=== PATIENT | female | born 1970 | race Caucasian/White ===

== ENCOUNTER → 2020-03-05 14:20 | Outpatient (BNVA) | payer OTHER, SELFPAY | PROVIDERS: Family Provider Registered Nurse; Visit Provider Nurse Practitioner Family | DX: Z11.59 Encounter for screening for other viral diseases (principal); R50.9 Fever, unspecified; R51 Headache; J02.9 Acute pharyngitis, unspecified | CPT/HCPCS: 87635 ==

== ENCOUNTER 2020-03-11 10:02 | Emergency (ER) | payer OTHER, SELFPAY ==
[2020-03-11 10:03] VITALS: BP 130/87; PULSE 95; RESP 15; TEMP 36.9; O2SAT 96; BMI 31.8
--- NOTE | 2020-03-11 10:18 | XRR_ITS ---
PROCEDURE INFORMATION: Exam: XR Chest, 1 View Exam date and time: 03/11/2020 10:52 AM Age: 49 years old Clinical indication: Shortness of breath; Chest pain; Type not specified; Patient HX: Positive covid; Additional info: Chest pain/sob TECHNIQUE: Imaging protocol: XR of the chest Views: 1 view. COMPARISON: CR Chest 1 [place] [id number] 05/09/2018 12:46 PM FINDINGS: Lungs: Unremarkable. No consolidation. Pleural space: Unremarkable. No pleural effusion. No pneumothorax. Heart/Mediastinum: Unremarkable. No cardiomegaly. Bones/joints: No acute findings. XR/XR chest 1V portable [id number] IMPRESSION: No acute findings.
--- NOTE | 2020-03-11 10:18 | ECG_ITS ---
[facility] Test Date: 2020-03-11 Pat Name: Jeri Hutchinson Department: Room: Gender: Female Curriculum Writer: : 1970 Requested By: Onelia Hooper Order Number: [id number] Seema MD: Maris Becerra M.D. Measurements Intervals [place] Rate: 87 P: 15 DC: 135 QRS: 33 QRSD: 86 T: 52 QT: 345 QTc: 416 Interpretive Statements SINUS RHYTHM POSSIBLE RIGHT VENTRICULAR CONDUCTION DELAY [RSR (QR) IN V1/V2] Compared to ECG 05/09/2018 12:53:58 No significant changes Electronically Signed On 03-11-2020 17:27:42 CDT by Maris Becerra M.D. [id number]
[2020-03-11 11:00] LABS: Basophils % 0.1 %; Eosinophils % 0.4 %; Hematocrit 47.9 % (37.0-47.0); Hemoglobin 16.2 g/dL (11.5-15.3); Lymphocytes # 2.1 10^3/uL (0.8-4.8); Lymphocytes % 30.7 %; Mean Corpuscular HGB Conc 33.8 g/dL (30.0-36.0); Mean Corpuscular Hemoglobin 31.9 pg (28.0-34.0); Mean Corpuscular Volume 94.3 fL (81-99); Mean Platelet Volume 12.4 fL (7.4-10.4); Monocytes # 0.6 10^3/uL (0.2-0.9); Monocytes % 8.5 %; Neutrophils # 4.17 10^3/uL (1.8-7.7); Neutrophils % 60.2 %; Nucleated Red Blood Cells % 0 %; Platelet Count 201 10^3/cmm (130-400); Red Blood Count 5.08 10^6/uL (4.1-5.3); Red Cell Distribution Width 11.6 % (12.1-15.1); White Blood Count 6.9 10^3/uL (4.0-10.0)
--- NOTE | 2020-03-11 11:00 | W.ED.GENADLT ---
HPI - General Adult General: Chief complaint: Shortness of Breath/Dyspnea Stated complaint: COV+ Time Seen by Provider: 03/11/20 10:18 Source: patient Mode of arrival: ambulatory Limitations: no limitations History of Present Illness: HPI narrative: Patient is a 49-year-old female who presents to ED today for evaluation for her COVID symptoms. Patient states she was swabbed on Tuesday and was called on Tuesday for her positive results. She tells me on Tuesday she began feeling a tickle in her throat and began having some nasal drainage. She initially thought these were related to allergies however the day following those symptoms she began developing a headache and body aches as well as coughing. She states since then symptoms have progressed into chest pains and dizziness. She states she gets extremely short of breath with walking short distances. She had one syncopal episode on Tuesday. She reports fevers of 99.9. Patient denies known sick contacts. PMH is significant for HTN and anxiety. Her current medications include lisinopril and lorazepam. Associated symptoms: Reports chest pain, dyspnea, headache(s) and malaise; Deny nausea, rash, palpitations, syncope or vomiting Review of Systems Const: Reports: fever(s) (low grade), chills, body aches, fatigue and malaise Eyes: Denies: change in vision, blurry vision, photophobia, floaters or seeing flashes ENMT: Reports: throat pain, odynophagia, nasal discharge and nasal congestion Card: Reports: chest pain, lightheadedness and dyspnea on exertion; Denies: palpitations, irregular heart rhythm, edema, swelling of feet/ankles, syncope, pre-syncope, orthopnea or leg pain with exertion Resp: Reports: dyspnea, non-productive cough and chest congestion; Denies: pain on inspiration or hemoptysis GI: Reports: diarrhea; Denies: abdominal pain, nausea or vomiting : Denies: flank pain, difficulty voiding, dysuria, urinary frequency, urinary urgency or urinary hesitancy Musc: Denies: neck pain or back pain Skin/Breast: Denies: rash Neuro: Reports: headache(s) and dizziness; Denies: numbness in extremities, weakness in extremities or sensory changes Physical Exam Const: COMMON NORMALS: average body habitus, patient oriented x3, no limitations, healthy appearing, alert and well nourished GENERAL APPEARANCE: cooperative ORIENTATION/CONSCIOUSNESS: Yes awake, Yes oriented to person, Yes oriented to place and Yes oriented to time OTHER: looks like she doesn't feel well HENMT: COMMON NORMALS: normocephalic and atraumatic HEAD & SCALP: normocephalic and atraumatic Neck/C-Spine: COMMON NORMALS: no lymphadenopathy Resp: COMMON NORMALS: normal respiratory effort and clear to auscultation bilaterally AUSCULTATION: clear to auscultation bilaterally Cardio: COMMON NORMALS: regular rate and regular rhythm RATE: regular rate RHYTHM: regular rhythm Extremity: COMMON NORMALS: normal to inspection GENERAL: Yes normal exam except as noted Neuro: COMMON NORMALS: patient oriented x3 SENSORIUM/ORIENTATION: Yes alert, Yes oriented to person, Yes oriented to place and Yes oriented to time Skin: COMMON NORMALS: no rashes or lesions noted GENERAL SKIN EXAM: no rashes or lesions noted Course Vital Signs: Vital signs: Vital Signs Temperature 98.5 F 03/11/20 10:03 Pulse Rate 103 H 03/11/20 12:02 Respiratory Rate 20 H 03/11/20 12:02 Blood Pressure 130/87 03/11/20 10:03 Pulse Oximetry 98 03/11/20 12:02 MDM - General Adult MDM Narrative: Medical decision making narrative: pts labs overall look okay-she has a normal white count, d-dimer is barely elevated, very mild elevations to LFTs, troponin and CRP are normal; CXR normal; pts vitals are stable; she is satting normal and has not required oxygen; we got patient up and exerted her to see if she de-satted and she stayed at 100%; I spoke to Dr. Munoz who felt there would be no indication for hospital admission at this time; I did speak to patient extensively about returning to ED if she felt symptoms were worsening; she verbalized understanding Lab Data: Labs: Lab Results 03/11/20 03/11/20 03/11/20 Range/Units 10:47 10:49 10:49 WBC 6.9 (4.0-10.0) 10^3/ uL RBC 5.08 (4.1-5.3) 10^6/u L Hgb 16.2 H (11.5-15.3) g/dL Hct 47.9 H (37.0-47.0) % MCV 94.3 (81-99) fL MCH 31.9 (28.0-34.0) pg MCHC 33.8 (30.0-36.0) g/dL RDW 11.6 L (12.1-15.1) % Plt Count 201 (130-400) 10^3/c mm MPV 12.4 H (7.4-10.4) fL Neut % (Auto) 60.2 % Lymph % (Auto) 30.7 % [place] % (Auto) 8.5 % Eos % (Auto) 0.4 % Baso % (Auto) 0.1 % Neut # (Auto) 4.17 (1.8-7.7) 10^3/u L Lymph # (Auto) 2.1 (0.8-4.8) 10^3/u L [place] # (Auto) 0.6 (0.2-0.9) 10^3/u L Eos # (Auto) 0.0 (0.0-0.8) 10^3/u L Baso # (Auto) 0.0 (0.0-0.1) 10^3/u L Nucleated RBC % (a uto) 0 % Nucleated RBCs # 0.0 /100WBC D-Dimer (0-0.59) ug/mIFE U Sodium 137 (136-145) mmol/L Potassium 4.0 (3.5-5.1) mmol/L Chloride 99 (98-107) mmol/L Carbon Dioxide 25 (22-29) mmol/L Anion Gap 17.0 (5-19) BUN 15 (6-20) mg/dL Creatinine 0.6 (0.5-0.9) mg/dL GFR Calculation 107.2 (90-130) mL/min Glucose 98 (65-115) mg/dL Calculated Osmolal ity 280 L (285-295) mOsm/k g Lactic Acid (0.5-2.2) mmol/L Calcium 9.5 (8.5-10.5) mg/dL Magnesium 2.1 (1.7-2.3) mg/dL Total Bilirubin 0.5 (0.15-1.2) mg/dL AST 40 H (0-32) U/L ALT 54 H (0-33) U/L Alkaline Phosphata se 83 (35-105) IU/L Troponin T Gen 5 n g/L (0-10) ng/L C-Reactive Protein 3.9 (0.0-4.9) mg/L Total Protein 8.8 H (6.6-8.7) g/dL Albumin 4.6 (3.5-5.2) g/dL Globulin 4.2 (1.3-4.6) g/dL Influenza Type A A g Negative (Negative) Influenza Type B A g Negative (Negative) 03/11/20 03/11/20 03/11/20 Range/Units 10:49 10:49 10:49 WBC (4.0-10.0) 10^3/ uL RBC (4.1-5.3) 10^6/u L Hgb (11.5-15.3) g/dL Hct (37.0-47.0) % MCV (81-99) fL MCH (28.0-34.0) pg MCHC (30.0-36.0) g/dL RDW (12.1-15.1) % Plt Count (130-400) 10^3/c mm MPV (7.4-10.4) fL Neut % (Auto) % Lymph % (Auto) % [place] % (Auto) % Eos % (Auto) % Baso % (Auto) % Neut # (Auto) (1.8-7.7) 10^3/u L Lymph # (Auto) (0.8-4.8) 10^3/u L [place] # (Auto) (0.2-0.9) 10^3/u L Eos # (Auto) (0.0-0.8) 10^3/u L Baso # (Auto) (0.0-0.1) 10^3/u L Nucleated RBC % (a uto) % Nucleated RBCs # /100WBC D-Dimer 0.70 H (0-0.59) ug/mIFE U Sodium (136-145) mmol/L Potassium (3.5-5.1) mmol/L Chloride (98-107) mmol/L Carbon Dioxide (22-29) mmol/L Anion Gap (5-19) BUN (6-20) mg/dL Creatinine (0.5-0.9) mg/dL GFR Calculation (90-130) mL/min Glucose (65-115) mg/dL Calculated Osmolal ity (285-295) mOsm/k g Lactic Acid 0.9 (0.5-2.2) mmol/L Calcium (8.5-10.5) mg/dL Magnesium (1.7-2.3) mg/dL Total Bilirubin (0.15-1.2) mg/dL AST (0-32) U/L ALT (0-33) U/L Alkaline Phosphata se (35-105) IU/L Troponin T Gen 5 n g/L 6 (0-10) ng/L C-Reactive Protein (0.0-4.9) mg/L Total Protein (6.6-8.7) g/dL Albumin (3.5-5.2) g/dL Globulin (1.3-4.6) g/dL Influenza Type A A g (Negative) Influenza Type B A g (Negative) Imaging Data^: CXR: Radiologist's impression: [place] [address] XRay Report Signed Patient: Jeri Hutchinson Unit #: [id number] : 1970 Age/Sex: 49 / F ADM Date: 03/11/20 Loc: ER Room/Bed: Attending Dr: Ordering Provider/Ordering MD: Onelia Hooper Date of Service: 03/11/20 Procedure(s): XR chest 1V portable [id number] Accession Number(s): [id number] Report Number: [id number] PROCEDURE INFORMATION: Exam: XR Chest, 1 View Exam date and time: 03/11/2020 10:52 AM Age: 49 years old Clinical indication: Shortness of breath; Chest pain; Type not specified; Patient HX: Positive covid; Additional info: Chest pain/sob TECHNIQUE: Imaging protocol: XR of the chest Views: 1 view. COMPARISON: CR Chest 1 [place] [id number] 05/09/2018 12:46 PM FINDINGS: Lungs: Unremarkable. No consolidation. Pleural space: Unremarkable. No pleural effusion. No pneumothorax. Heart/Mediastinum: Unremarkable. No cardiomegaly. Bones/joints: No acute findings. XR/XR chest 1V portable [id number] IMPRESSION: No acute findings. Dictated By: Agusto Zambrano MD Signed By: Agusto Zambrano MD Signed Date/Time: 03/11/20 113 DD/ 31 EKG Data^: EKG 1: EKG interpretation date: 03/11/20 EKG interpretation time: 10:37 Interpretation: Sinus rhythm Rate [address] elevation or depression changes noted Computer generated interpretation: Chest X-Ray 03/11/20 10:18 IMPRESSION: No acute findings. Discharge Plan Discharge Patient Disposition: Home Clinical Impression: COVID-19 Condition: Stable Prescriptions: No Action Multiple Vitamins Tablet 1 tab PO BID RF: 0 lisinopril-hydrochlorothiazide 20-12.5 mg tablet 1 tab PO DAILY RF: 0 Tylenol Extra Strength 500 mg Tablet 1,500 mg PO PRN RF: 0 lorazepam 1 mg tablet 1 mg PO Q8H PRN (Reason: Anxiety) RF: 0 Discharge Orders: Discharge Order (Routine); Ordered 03/11/20 Ordered By: Onelia Hooper Activity Restrictions/Additional Instructions: As discussed make sure to get plenty of rest and push fluids. Avoid strenuous activity. You may purchase a portable pulse ox to place on your finger to monitor oxygen levels. Please return to the emergency department immediately for worsening symptoms including worsening shortness of breath or chest pains. I hope you begin to feel better soon. Coding Level of Care Code ED C D Still Operator for Praveeng Fwd Exam Detailed
[2020-03-11 11:17] LABS: Lactic Sepsis W/Reflex 0.9 mmol/L (0.5-2.2)
[2020-03-11 11:20] LABS: Alanine Aminotransferase 54 U/L (0-33); Albumin Level 4.6 g/dL (3.5-5.2); Alkaline Phosphatase 83 IU/L (35-105); Aspartate Amino Transferase 40 U/L (0-32); Blood Urea Nitrogen 15 mg/dL (6-20); C Reactive Protein 3.9 mg/L (0.0-4.9); Calcium 9.5 mg/dL (8.5-10.5); Carbon Dioxide 25 mmol/L (22-29); Chloride 99 mmol/L (98-107); Globulin 4.2 g/dL (1.3-4.6); Glomerular Filtration Rate 107.2 mL/min (90-130); Glucose 98 mg/dL (65-115); Magnesium 2.1 mg/dL (1.7-2.3); Osmolality Calculated 280 mOsm/kg (285-295); Sodium 137 mmol/L (136-145); Total Bilirubin 0.5 mg/dL (0.15-1.2); Total Protein 8.8 g/dL (6.6-8.7)
[2020-03-11 11:21] LABS: Troponin T (5th) Once 6 ng/L (0-10)
[2020-03-11 11:29] LABS: Influenza A by IFA Negative (Negative); Influenza B by IFA Negative (Negative)
[2020-03-11 12:02] VITALS: PULSE 103; RESP 20; O2SAT 98
[2020-03-11 13:43] VITALS: BP 130/87; PULSE 87; RESP 17; TEMP 36.9; O2SAT 96
--- NOTE | 2020-03-13 14:09 | PC.NURSE ---
2nd blood culture positive for gram positive cocci in clusters
== END 2020-03-11 13:35 | disposition home or self-care (01) ==
PROVIDERS: Emergency Provider Physician Assistant
DX: U07.1 COVID-19 (principal)
CPT/HCPCS: 12345; 36415; 71045; 80053; 83605; 83735; 84484; 85025; 85378; 86140; 87040; 87205; 87804; 93005; 99283; 99284

== ENCOUNTER 2021-02-04 20:26 | Emergency (ER) | payer OTHER, SELFPAY ==
[2021-02-04 20:39] VITALS: BP 147/87; PULSE 80; RESP 16; TEMP 36.2; O2SAT 95; BMI 28.6
[2021-02-04 21:44] LABS: HCG Qualitative Urine. Negative (Negative)
--- NOTE | 2021-02-04 21:55 | CTR_ITS ---
PROCEDURE INFORMATION: Exam: CT Abdomen And Pelvis Without Contrast Exam date and time: 02/04/2021 9:55 PM Age: 50 years old Clinical indication: Other: Hematuria; Abdominal pain; Flank; Right; Prior surgery; Surgery type: , hyst; Additional info: Right flank pain TECHNIQUE: Imaging protocol: Computed tomography of the abdomen and pelvis without contrast. Radiation optimization: All CT scans at this facility use at least one of these dose optimization techniques: automated exposure control; mA and/or kV adjustment per patient size (includes targeted exams where dose is matched to clinical indication); or iterative reconstruction. COMPARISON: CR XR chest 1V portable [id number] 03/11/2020 10:42 AM RADIATION DOSE METRICS: Total DLP (mGy-cm): 926.4 FINDINGS: Liver: Left hepatic lobe cyst. Gallbladder and bile ducts: Normal. No calcified stones. No ductal dilation. Pancreas: Normal. No ductal dilation. Spleen: Normal. No splenomegaly. Adrenal glands: Normal. No mass. Kidneys and ureters: Mild right hydronephrosis and hydroureter without obstructing lesion may reflect sequelae of a recently passed calculus. Small amount of edema is also seen about the right ureter which may also reflect an underlying infectious process depending on the clinical scenario. Stomach and bowel: Unremarkable. No obstruction. No mucosal thickening. Appendix: No evidence of appendicitis. Intraperitoneal space: Unremarkable. No free air. No significant fluid collection. Vasculature: Unremarkable. No abdominal aortic aneurysm. Lymph nodes: Unremarkable. No enlarged lymph nodes. Urinary bladder: Unremarkable as visualized. Reproductive: Right ovary 12 mm peripherally calcified cyst. Bones/joints: Unremarkable. No acute fracture. Soft tissues: Unremarkable. CT/CT kidney stone [id number] IMPRESSION: 1. Mild right hydronephrosis and hydroureter without obstructing lesion may reflect sequelae of a recently passed calculus. Small amount of edema is also seen about the right ureter which may also reflect an underlying infectious process depending on the clinical scenario. 2. Right ovary 12 mm peripherally calcified cyst. 3. Left hepatic lobe cyst. Radiation Dose CTDIVOL = (mGy): DLP = 926.4 (mGy-cm)
--- NOTE | 2021-02-04 21:56 | W.ED.FEMALGU ---
HPI - Female Genitourinary General: Chief complaint: Urogenital-Female Stated complaint: poss UTI/back pain Time Seen by Provider: 02/04/21 21:43 History of Present Illness: HPI Narrative: 50-year-old female comes in today with complaints of right flank pain and urinary tract infection. Patient was evaluated and treated for a UTI last Tuesday. Patient reports no improvement in symptoms and feels worse today than then. Patient now has some right flank pain. Patient appears in mild pain. Patient appears mildly unwell and not toxic. Patient has a history of headaches, hypertension, and anxiety. Review of Systems General: Reports: 10 or more systems reviewed and unremarkable except in HPI and below : Reports: flank pain and dysuria Physical Exam Const: COMMON NORMALS: no acute distress and patient oriented x3 GENERAL APPEARANCE: cooperative HENMT: COMMON NORMALS: normocephalic and Normal external nose present HEAD & SCALP: normal to inspection and normocephalic NOSE: Normal external nose present MOUTH: Normal oral and palatal mucosa present Eye: GENERAL EYE: appearance normal, both eyes and all related structures Neck/C-Spine: COMMON NORMALS: full ROM Chest: COMMONS NORMALS: normal inspection of the chest Resp: COMMON NORMALS: normal respiratory effort EFFORT & INSPECTION: Yes able to speak in complete sentences Cardio: COMMON NORMALS: regular rate and regular rhythm RATE: regular rate RHYTHM: regular rhythm GI: COMMON NORMALS: non-tender : BLADDER/KIDNEY EXAM: Yes CVA tenderness on the right Back/Pelvis: COMMON NORMALS: thoracic and lumbar spine normal to inspection GENERAL BACK: Yes CVA tenderness Extremity: COMMON NORMALS: normal to inspection Neuro: COMMON NORMALS: patient oriented x3 and moves all extremities Psych: COMMON NORMALS: mental status grossly normal and cooperative Skin: COMMON NORMALS: no rashes or lesions noted GENERAL SKIN EXAM: no rashes or lesions noted Course Vital Signs: Vital signs: Vital Signs Temperature 97.1 F L 02/04/21 20:39 Pulse Rate 80 02/04/21 20:39 Respiratory Rate 16 02/04/21 20:39 Blood Pressure 147/87 02/04/21 20:39 Pulse Oximetry 95 02/04/21 20:39 MDM - Female MDM Narrative: Medical decision making narrative: Patient comes in tonight with complaints of right flank pain. Patient also reports dysuria. On exam patient has right CVA tenderness. Respirations are even lungs are clear to auscultation. Vital signs are normal. Differential diagnosis includes pyelonephritis, urinary tract infection, renal calculi. CT of the abdomen pelvis noted no obstructing stone but did see some hydronephrosis in the right kidney. Urinalysis had a large amount of white blood cells. The hydronephrosis may be secondary to the recent passing of a kidney stone or may be a stricture within the ureter. We will go ahead and treat for infection with 1 g of Rocephin and then cefdinir to follow. Recommend that patient follow-up with urology for further evaluation of the hydronephrosis of the right kidney. Patient reported understanding and agreed to plan. Lab Data: Labs: Lab Results 02/04/21 02/04/21 Range/Units 21:36 21:45 HCG, Qual Negative (Negative) Urine Color Yellow (Yellow) Urine Appearance Sl hazy (CLEAR) Urine pH 7 (5-7) Ur Specific Gravit y 1.010 (1.005-1.030) Urine Protein Trace (Negative) Urine Glucose (UA) Norm (Normal) Urine Ketones Negative (Negative) Urine Blood 3+ H (Negative) Urine Nitrate Negative (Negative) Urine Bilirubin Neg (Negative) Urine Urobilinogen Norm (Negative) mg/dL Ur Leukocyte Raiza ase 2+ H (Negative) Urine RBC 0-4 H (0-2) /hpf Urine WBC >100 H (0-5) /hpf Ur Squamous Epith Cells 5-10 H (0-5) /hpf Amorphous Sediment Not Reportable Urine Bacteria 1+ H (NONE) /hpf Discharge Plan Discharge Patient Disposition: Home Clinical Impression: Hydronephrosis of right kidney Urinary tract infection Qualifiers: Urinary tract infection type: acute pyelonephritis Qualified Code(s): N10 - Acute pyelonephritis Condition: Stable Prescriptions: New cefdinir 300 mg capsule 300 mg PO BID 10 Days Qty: 20 RF: 0 hydrocodone-acetaminophen 5-325 mg tablet 1 tab PO Q6H PRN (Reason: pain (scale score 7-10)) Qty: 10 RF: 0 No Action Multiple Vitamins Tablet 1 tab PO BID RF: 0 lisinopril-hydrochlorothiazide 20-12.5 mg tablet 1 tab PO DAILY RF: 0 Tylenol Extra Strength 500 mg Tablet 1,500 mg PO PRN RF: 0 lorazepam 1 mg tablet 1 mg PO Q8H PRN (Reason: Anxiety) RF: 0 Discharge Orders: Discharge ED (Routine); Ordered 02/04/21 Ordered By: Shaggy Billings Discharge Diet: Usual diet Discharge Activity: Increase activity as tolerated Patient Instructions: Renal Colic (ED), Opioid Safety Activity Restrictions/Additional Instructions: Use acetaminophen and ibuprofen for pain. Use hydrocodone for breakthrough pain. Continue with cefdinir antibiotic 300 mg twice a day for the next 7 days. Follow-up with primary care in 1 week for recheck. Case management will contact you regarding a follow-up appointment for urologist to do the hydronephrosis of the right kidney. Return to the emergency room for worsening symptoms or new concerns. Coding Level of Care Code ED Vending Machine Refiller for Lisseth Chaudhari Exam Comprehensive
[2021-02-04 22:05] LABS: Add Urine Microscopic? YES; Bilirubin Urine Neg (Negative); Blood Urine 3+ (Negative); Glucose Urine UA Norm (Normal); Ketones Urine Negative (Negative); Leukocyte Esterase Urine 2+ (Negative); Nitrate Urine Negative (Negative); Protein Urine Trace (Negative); RBC Urine 0-4 /hpf (0-2); Urine Appearance SL Hazy (CLEAR); Urine Color Yellow (Yellow); Urobilinogen Urine Norm (Negative); WBC Urine >100 /hpf (0-5); pH Urine 7 (5-7)
[2021-02-04 22:06] LABS: Add Urine Culture? Yes; Bacteria Urine 1+ /hpf
[2021-02-04] MEDS: HYDROcodone-acetaminophen 7.5-325 mg Tablet 1 TAB PO (22:12)
[2021-02-04] MEDS: cefTRIAXone 1,000 MG in lidocaine 1% 2.1 ML 1 MG IM (23:07)
[2021-02-04] MEDS: ketorolac 30 mg/mL INJ IM (23:49)
--- NOTE | 2021-02-09 13:53 | DCPLANNER ---
export sales manager was asked to schedule a follow up appointment for patient with Dr. Park. export sales manager called the office of Dr. Park, spoke with Khushi, gave clinic patients information. export sales manager was told that patients information would be printed and reviewed. Clinic will call patient with appointment information.
--- NOTE | 2021-02-10 08:35 | DCPLANNER ---
Patient has a follow up appointment scheduled for Wednesday, February 17, [address] at 8:[address] Park. Clinic will call patient with appointment information.
--- NOTE | 2021-02-19 11:59 | DCPLANNER ---
Patient had a follow up appointment scheduled with Dr. Park - appointment was cancelled.
== END 2021-02-04 23:54 | disposition home or self-care (01) ==
PROVIDERS: Emergency Provider Nurse Practitioner Family
DX: N10 Acute pyelonephritis (principal); N13.30 Unspecified hydronephrosis; I10 Essential (primary) hypertension
CPT/HCPCS: 74176; 81001; 81025; 87077; 87086; 87186; 96372; 99283; J0696; J1885

== ENCOUNTER 2021-05-20 15:31 | Emergency (ER) | payer BC, SELFPAY ==
[2021-05-20 15:45] VITALS: BP 115/82; PULSE 95; RESP 18; TEMP 37; O2SAT 100; BMI 26.2
--- NOTE | 2021-05-20 16:37 | W.ED.GENADLT ---
HPI - General Adult General: Chief complaint: General Medical Stated complaint: HTN, WEAK Time Seen by Provider: 05/20/21 16:32 History of Present Illness: HPI narrative: CC: Chest Pain HPI: This is a [50]-year-old patient with a history of hypertension who recently started on hydrochlorothiazide 25 mg and lisinopril 20 mg presenting the emergency room for evaluation of uncontrolled blood pressure and left-sided facial numbness. Patient says that her symptom has been going on for 1 day. She recently restarted lisinopril yesterday and Ativan for anxiety. Patient denies any focal neurological weakness. Patient is concerned that her blood pressure is uncontrolled. Patient also reports intermittent chest pressure and a.m. this morning that has since resolved. Patient denies any chest pain shortness breath, exertional or pleuritic chest pain, nausea/vomiting, fever/chills, abdominal complaints or complaints at this time. Denies smoking or any hx of drug use. In addition, patient reports mild chest ache at 8am this morning lasting for a few seconds. Denies any diaphoresis/N/V, arm/shoulder radiation Onset: chronic Duration: ongoing for the last 1 day Location: home Severity: mild/moderate Review of Systems Narrative: Constitutional: No fever, no chills. HEENT: No vision changes, no sore throat. CV: +chest ache episode x 1, no palpitations. PULM: No cough, No dyspnea. GI: No abdominal pain, no N/V/D. : No dysuria, no frequency, no hematuria. MSKEL: No arthralgias, no edema. SKIN: No new rashes, no lesions. NEURO: +mild frontal headache, no focal weakness. HEME: No easy bleeding or bruising. PSYCH: No change in mood or affect. Physical Exam Narrative: EXAM NARRATIVE: Head: Atraumatic, normocephalic Eyes: PERRL, EOMI, conjunctiva without injection ENT: Throat without erythema, lesions or exudate, MMM NECK: Supple, trachea midline, no JVD LUNGS: LCTA CV: RRR, S1,S2, no murmurs, rubs, gallops. 2+ peripheral pulses in UEs ABDOMEN: Soft, nontender, nondistended, BS x4, no rigidity, no guarding, no rebound EXTREMITY: Normal ROM, no pitting edema, no calf tenderness to palpation SKIN: No rash or erythema NEURO: Mental status? Awake, alert, and oriented to self, year, month, location, and situation.? Following simple axial and appendicular commands.? Has appropriate fund of knowledge, comprehension, and insight.? Able to recall and understands pertinent aspects of medical history and current treatment status.? ? Language? Speech is fluent without word-finding difficulties.? Intact naming, expression, block inspector, and repetition.? ? Cranial nerves? 2,3,4,6: PERRL, EOMI with no nystagmus. 5: Intact sensation to light touch, symmetric? 7: Smile symmetrical, no facial droop.? 8: Hearing grossly intact.? 9,10: Normal palate movement.? 11: Normal strength in trapezius bilaterally 12: Tongue protrudes midline.? ? Motor examination? Normal bulk & tone. Strength as follows (R/L): Delts (5/5), Biceps (5/5), Triceps (5/5), Wrist ext (5/5), hip flexors (5/5), plantarflexors (5/5), dorsiflexors (5/5). ? Sensation? Light Touch: Grossly intact and equal in upper and lower extremities bilaterally? Romberg: Negative.? Distal joint position sense intact ? Coordination? Uzdvgf-pd-ewsa-finger movements intact without dysmetria or past-pointing.? Rapid fingertaps: preserved amplitude without decriment.? No tremor, myoclonus or truncal ataxia.? ? Gait/stance? Steady, normal narrow base gait with appropriate arm swing and turning.? Tandem gait without hesitation or loss of balance. PSYCH: Normal mood and affect. Course Vital Signs: Vital signs: Vital Signs Temperature 98.6 F 05/20/21 15:45 Pulse Rate 95 05/20/21 15:45 Respiratory Rate 18 05/20/21 15:45 Blood Pressure 115/82 05/20/21 15:45 Pulse Oximetry 100 05/20/21 15:45 MDM - General Adult MDM Narrative: Medical decision making narrative: [50]yo patient w/ hx of HTN and anxiety presenting to the ED concerns for uncontrolled blood pressure in the setting of chest pressure x1 episode earlier this morning at 8 AM.. HDS, pulse 2+ radially bilaterally, no signs of fluid overload, AAOx3, neuro exam intact. Given History and Exam today I have no suspicion for ACS, Pneumothorax, Pneumonia, Pulmonary Embolus, Tamponade, Aortic Dissection or other emergent problems as a cause for this presentation. Workup: ECG, CXR, CBC, BMP, Troponin Interventions: IVF, tylenol Findings: ECG: No overt evidence of STEMI, hyperacute T waves, localizable STD or T wave inversions. No evidence of Brugada?s sign, delta wave, epsilon wave, significantly prolonged QTc, or malignant arrhythmia. No Q waves. Other Labs unremarkable for emergent problems. CXR: Without PTX, PNA, or widened mediastinum Last Stress Test: never Last Heart Catheterization: never PERC: Negative HEART score: 3 (0 for story, and 1 for age, 1 for risk factor HTN, 1 EKG - non specific changes) [6:30pm] On reassessment, the patient is HDS, no complaints of persistent chest pain in the ED after evaluation. Doubt ACS/PE or other emergent causes of chest pain. No suspicion for aortic dissection given no widened mediastinum, 2+ upper extremity pulses, or tearing pain. No suspicion for PE given no pleuritic chest pain, recent immobilization or surgery hemoptysis, or other VTE risk factors. EKG is non-ischemic. XR normal. HEART score of 3, will have patient follow up with PCP and cardiology for further evaluation of chest pain. Neuro exam is intact, no suspicion for acute stroke. I have given patient follow up with our case therapist to be seen by our outpatient Cardiology for further evaluation of chest pain should patient need it. Patient aware of a call from our case therapist to schedule for appointment(s) and verbalizes understanding of the importance of following up. Disposition: Discharge. Patient counseled regarding diagnostic impression, treatment plan. Patient given ED strict return precautions to return for continuation, worsening, or development of new symptoms. Instructed to f/u w/ PCP and white sugar syrup operator regarding symptoms today. Patient verbalized understanding. Lab Data: Labs: Lab Results 05/20/21 05/20/21 05/20/21 17:05 17:05 17:05 WBC 8.5 10^3/uL 10^3/ uL (4.0-10.0) RBC 4.57 10^6/uL 10^6 /uL (4.1-5.3) Hgb 14.5 g/dL g/dL (11.5-15.3) Hct 44.0 % % (37.0-47.0) MCV 96.3 fl fl (81-99) MCH 31.7 pg pg (28.0-34.0) MCHC 33.0 g/dL g/dL (30.0-36.0) RDW 11.6 % L % (12.1-15.1) Plt Count 294 10^3/cmm 10^3 /cmm (130-400) MPV 11.3 fL H fL (7.4-10.4) Neut % (Auto) 63.0 % % Lymph % (Auto) 27.8 % % [place] % (Auto) 8.3 % % Eos % (Auto) 0.4 % % Baso % (Auto) 0.4 % % Neut # (Auto) 5.37 10^3/uL 10^3 /uL (1.8-7.7) Lymph # (Auto) 2.4 10^3/uL 10^3/ uL (0.8-4.8) [place] # (Auto) 0.7 10^3/uL 10^3/ uL (0.2-0.9) Eos # (Auto) 0.0 10^3/uL 10^3/ uL (0.0-0.8) Baso # (Auto) 0.0 10^3/uL 10^3/ uL (0.0-0.1) Nucleated RBC % (a uto) 0 % % Nucleated RBCs # 0.0 /100WBC /100W BC Sodium 140 mmol/L mmol/L (136-145) Chloride 100 mmol/L mmol/L (98-107) Carbon Dioxide 28 mmol/L mmol/L (22-29) BUN 11 mg/dL mg/dL (6-20) Creatinine 0.5 mg/dL mg/dL (0.5-0.9) Glucose 71 mg/dL mg/dL (65-115) Calculated Osmolal ity 288 mOsm/kg mOsm/ kg (285-295) Calcium 10.0 mg/dL mg/dL (8.5-10.5) Troponin T Baselin e 6 ng/L ng/L (0-10) Discharge Plan Discharge Patient Disposition: Home Clinical Impression: Chest pain Condition: Stable Prescriptions: No Action Multiple Vitamins Tablet 1 tab PO BID RF: 0 lisinopril-hydrochlorothiazide 20-12.5 mg tablet 1 tab PO DAILY RF: 0 Tylenol Extra Strength 500 mg Tablet 1,500 mg PO PRN RF: 0 lorazepam 1 mg tablet 1 mg PO Q8H PRN (Reason: Anxiety) RF: 0 hydrocodone-acetaminophen 5-325 mg tablet 1 tab PO Q6H PRN (Reason: pain (scale score 7-10)) Qty: 10 RF: 0 Discharge Orders: Discharge ED (Routine); Ordered 05/20/21 Ordered By: Brenda Hicks Referrals: Shira Contreras [Primary Care Provider] - Discharge Diet: Advance as tolerated Discharge Activity: Resume usual activity Patient Instructions: Chest Pain (ED), Opioid Safety Activity Restrictions/Additional Instructions: Please come back to the emergency room if your chest pain worsens. Please follow-up with your primary care provider and a cardiolgosit for further evaluation of your cardiac murmur. Back to the emergency room if you have any new or concerning complaints. Coding Level of Care Code ED Overhead Garage Door Hanger for Lisseth Chaudhari
--- NOTE | 2021-05-20 17:07 | ECG_ITS ---
[facility] Test Date: 2021-05-20 Pat Name: Jeri Hutchinson Department: Room: Gender: Female Internet Manager: : 1970 Requested By: Brenda Hicks Order Number: [id number] Seema MD: Joe Jung M.D. Measurements Intervals [place] Rate: 82 P: 45 NV: 152 QRS: 45 QRSD: 85 T: 33 QT: 362 QTc: 423 Interpretive Statements SINUS RHYTHM WITH SINUS ARRHYTHMIA POSSIBLE LEFT ATRIAL ENLARGEMENT [-0.1mV P-WAVE IN V1/V2] POSSIBLE RIGHT VENTRICULAR CONDUCTION DELAY [RSR (QR) IN V1/V2] Compared to ECG 03/11/2020 10:37:08 No significant changes Electronically Signed On 05-21-2021 17:10:23 CDT by Joe Jung M.D. [id number]
--- NOTE | 2021-05-20 17:07 | XRR_ITS ---
PROCEDURE INFORMATION: Exam: XR Chest Exam date and time: 05/20/2021 5:07 PM Age: 50 years old Clinical indication: Pain; Chest pressure; Additional info: Chest pain TECHNIQUE: Imaging protocol: XR of the chest. Views: 1 view. COMPARISON: CR XR chest 1V portable [id number] 03/11/2020 10:42 AM FINDINGS: Lungs: Unremarkable. No consolidation. Pleural spaces: Unremarkable. No pleural effusion. No pneumothorax. Heart/Mediastinum: Unremarkable. No cardiomegaly. Bones/joints: Thoracolumbar scoliosis. XR/XR chest 1V portable [id number] IMPRESSION: No acute finding. Radiation Dose CTDIVOL = (mGy): DLP = (mGy-cm)
[2021-05-20 17:24] LABS: Basophils % 0.4 %; Eosinophils % 0.4 %; Hemoglobin 14.5 g/dL (11.5-15.3); Lymphocytes # 2.4 10^3/uL (0.8-4.8); Lymphocytes % 27.8 %; Mean Corpuscular Hemoglobin 31.7 pg (28.0-34.0); Mean Corpuscular Volume 96.3 fl (81-99); Mean Platelet Volume 11.3 fL (7.4-10.4); Monocytes # 0.7 10^3/uL (0.2-0.9); Monocytes % 8.3 %; Neutrophils # 5.37 10^3/uL (1.8-7.7); Nucleated Red Blood Cells % 0 %; Platelet Count 294 10^3/cmm (130-400); Red Blood Count 4.57 10^6/uL (4.1-5.3); Red Cell Distribution Width 11.6 % (12.1-15.1); White Blood Count 8.5 10^3/uL (4.0-10.0)
[2021-05-20] MEDS: sodium chloride 0.9% 1,000 ML 999 ML IV (17:57)
[2021-05-20 17:58] LABS: Troponin(5th) Baseline 6 ng/L (0-10)
[2021-05-20 18:02] LABS: Blood Urea Nitrogen 11 mg/dL (6-20); Carbon Dioxide 28 mmol/L (22-29); Chloride 100 mmol/L (98-107); Glomerular Filtration Rate 131.7 mL/min (90-130); Glucose 71 mg/dL (65-115); Osmolality Calculated 288 mOsm/kg (285-295); Sodium 140 mmol/L (136-145)
[2021-05-20 18:08] LABS: Anion Gap 16.3 (5-19); Potassium 4.3 mmol/L (3.5-5.1)
--- NOTE | 2021-05-21 11:11 | DCPLANNER ---
Addendum entered by Lois Graff 08/09/21 15:44: Patient had a follow up appointment scheduled with [facility] - patient did attend appointment. Original Note: customer sales service manager had message to schedule a follow up appointment for patient with [facility]. customer sales service manager called [facility], spoke with Anastasia, gave clinic patients information. A follow up appointment was scheduled for Tuesday, May 27, 2021 at 2:[address] Webster. customer sales service manager called phone number [phone], unable to speak with patient at this time, a voicemail was left for patient with the appointment information.
== END 2021-05-20 18:40 | disposition home or self-care (01) ==
PROVIDERS: Nurse Practitioner Family; Emergency Provider Emergency Medicine; PCP Registered Nurse
DX: R07.9 Chest pain, unspecified (principal); I10 Essential (primary) hypertension; F41.9 Anxiety disorder, unspecified; Z79.891 Long term (current) use of opiate analgesic
CPT/HCPCS: 71045; 80048; 84484; 85025; 93005; 96360; 99283; J7030

== ENCOUNTER 2022-08-23 06:42 | Emergency (ER) | payer SELFPAY ==
[2022-08-23] VITALS (44 sets, daily range): BP systolic 95–128; BP diastolic 54–90; PULSE 67–95; RESP 10–24; TEMP 36.2; O2SAT 90–100
--- NOTE | 2022-08-23 06:50 | ECG_ITS ---
[facility] Test Date: 2022-08-23 Pat Name: Jeri Hutchinson Department: Room: Gender: Female Facilities Manager: : 1970 Requested By: Po Olivier Order Number: [id number] Seema MD: Arlin Maldonado M.D. Measurements Intervals [place] Rate: 87 P: 68 MO: 126 QRS: 84 QRSD: 85 T: 72 QT: 374 QTc: 450 Interpretive Statements SINUS RHYTHM NONSPECIFIC T-WAVE ABNORMALITY Compared to ECG 05/20/2021 18:01:32 T-wave abnormality now present Sinus arrhythmia no longer present Electronically Signed On 08-23-2022 8:35:02 MERCHANDISE SUPERVISOR by Arlin Maldonado M.D. [id number]
--- NOTE | 2022-08-23 07:12 | XR_ITS ---
WS: [id number] XR chest 1V portable [id number] REASON FOR EXAM: chest pain FINDINGS: The chest is unchanged compared to 05/30/2021. The heart and mediastinum are within normal limits. Calcified granulomatous disease in both hemithoraces. No active pulmonary parenchymal or pleural disease. Mild changes of degenerative spondylosis and mild scoliosis convex right in the mid and lower thoraci c spine. XR/XR chest 1V portable [id number] IMPRESSION: No acute chest abnormality.
--- NOTE | 2022-08-23 07:13 | ED_ITS ---
Documented by User: MILVIA Sanon 08/23/22 11:04 HPI - Chest Pain General: Chief Complaint: Chest Pain Stated Complaint: chest pain/SOB Time Seen by Provider: 08/23/22 07:02 Source: patient Mode of arrival: ambulatory Limitations: no limitations History of Present Illness: Patient is a 52-year-old female who initially presented to the ED with a complaint of non-radiating substernal chest pain over the past 3 to 4 days. She states pain came on gradually and has been persistent since onset. Has had some nausea this morning. She has not noticed any worsening or alleviating factors to her discomfort except for today while she was at the gym she states her pain became worse when she was on the treadmill. She noticed yesterday while working in the yard she had to stop several times as she began feeling short of breath. Patient denies any recent illness. She has not noticed any lower leg swelling. No orthopnea or PND. Denies calf pain. Patient states she has had similar chest pains previously. She followed up with cardiology who recommended echocardiogram but patient never followed up with this. Patient states she is having some perioral paresthesias which she has had multiple times before and feels foggy headed . Patient does have a history of anxiety. MD complaint: chest pain Onset (ago): day(s) Timing of current episode: constant Prior episodes: Yes Pain location: substernal Pain radiation: none Quality: other (squeezing) Relieving factors: nothing Exacerbating factors: nothing Associated symptoms: Reports dyspnea; Deny abdominal pain, fever(s), nausea, palpitations, syncope or vomiting Treatment prior to arrival: none Risk Factors: Coronary artery disease risk factors: none Thoracic aortic dissection risk factors: none Related Data: On Oral Contraceptives: No Review of Systems Const: Denies: fever(s), chills, body aches, fatigue or malaise Eyes: Denies: change in vision, blurry vision, photophobia, floaters or seeing flashes Card: Reports: chest pain, pre-syncope and dyspnea on exertion; Denies: palpitations, irregular heart rhythm, edema, swelling of feet/ankles, lightheadedness, syncope, orthopnea, leg pain with exertion or acrocyanosis Resp: Reports: dyspnea; Denies: productive cough, non-productive cough, wheezing, stridor, pain on inspiration, change in phlegm color, hemoptysis or chest congestion GI: Denies: abdominal pain, nausea, vomiting, heartburn or diarrhea : Denies: flank pain or dysuria Musc: Denies: neck pain, back pain, extremity pain, extremity swelling or joint pain Skin/Breast: Denies: rash Neuro: Denies: headache(s), numbness in extremities, weakness in extremities, sensory changes, difficulty walking, dizziness or confusion Psych: Reports: anxiety PFSH ED PFSH: Medical History Anxiety Family History Grandmother Anesthesia complication Cancer Family/Other Bleeding disorder Clotting disorder Mother Chronic kidney disease (CKD) Daughter Chronic kidney disease (CKD) Grandfather Lung disease Brother Suicide Denies family history of Diabetes CAD (coronary artery disease) Dementia Stroke Social History Smoking and tobacco status: never smoked Alcohol intake: current Alcohol intake frequency: holidays/special occasions only Physical Exam Const: COMMON NORMALS: no acute distress, average body habitus, patient oriented x3, no limitations, alert and well nourished GENERAL APPEARANCE: cooperative ORIENTATION/CONSCIOUSNESS: Yes awake, Yes oriented to person, Yes oriented to place and Yes oriented to time HENMT: COMMON NORMALS: normocephalic and atraumatic HEAD & SCALP: normal to inspection, normocephalic and atraumatic FACE & SINUS: normal facial exam Eye: COMMON NORMALS: Equal, round and reactive pupils present and EOMs intact bilaterally GENERAL EYE: appearance normal, both eyes and all related structures and normal light reflex PUPIL: Yes Equal, round and reactive pupils present DIRECT OPHTHALMOSCOPY: Yes normal light reflex Neck/C-Spine: COMMON NORMALS: full ROM, no lymphadenopathy and no meningeal signs GENERAL: Yes normal visual inspection Chest: COMMONS NORMALS: normal inspection of the chest and normal palpation of entire chest wall Resp: COMMON NORMALS: normal respiratory effort and clear to auscultation bilaterally AUSCULTATION: clear to auscultation bilaterally Cardio: COMMON NORMALS: regular rate and regular rhythm RATE: regular rate RHYTHM: regular rhythm GI: COMMON NORMALS: Normal to inspection, nondistended, normoactive bowel sounds present, Soft to palpation and non-tender PALPATION: Yes Soft to palpation : COMMON NORMALS: Yes no CVA tenderness BLADDER/KIDNEY EXAM: Yes no CVA tenderness Back/Pelvis: COMMON NORMALS: no CVA tenderness, thoracic and lumbar spine normal to inspection, no thoracic nor lumbar tenderness and thoraco-lumbar ROM normal Extremity: COMMON NORMALS: normal to inspection and full ROM GENERAL: Yes normal exam except as noted Neuro: MONO COMA SCALE: document GCS findings [place] coma scale eye opening: Spontaneous [place] coma scale verbal response: Orientated [place] coma scale motor response: Obey commands [place] coma scale total score: 15 COMMON NORMALS: patient oriented x3, CN's II-XII intact bilaterally, moves all extremities, no focal motor deficits, no sensory deficits noted and gait normal SENSORIUM/ORIENTATION: Yes alert, Yes oriented to person, Yes oriented to place and Yes oriented to time MENINGEAL SIGNS: Yes no meningeal signs Skin: COMMON NORMALS: no rashes or lesions noted GENERAL SKIN EXAM: no rashes or lesions noted Course ED course: Patient shortly after my initial examination began telling nursing staff that her chest pain was worse, she was becoming dizzy, lightheaded, foggy, and disoriented. Vitals remained stable. She remained normal sinus rhythm on monitor. I went in and re-examined patient. She was lying on the bed with her eyes closed and refused to open them for most of my questioning. She tells me that she thinks she ambulated to the restroom and while in the restroom became dizzy and lightheaded and cannot remember after that . No syncope. Full neurologic examination performed and although extremely poor effort was noted by patient, exam was normal. Shortly after this RN informed me that consciousness seemed to improve and she was conversing with her mother/father in the room. Patient's extensive ED work-up is essentially benign. Her D-dimer was ordered secondary to her complaint of shortness of breath. This was elevated thus CTA imaging performed which was negative. Her ABG is normal. She mentions she was told on her last ED visit that I have a hole in my heart and is very concerned in regards to this. I cannot find any mention of this in Dr. Hicks's ED documentation or cardiology follow-up visit. Patient's HEART score at this time is 1 (for age). I will have patient follow-up with cardiology. She can also follow-up with PCP. I certainly think there is an anxiety/psychosomatic component to patient's symptoms and presentation here today. Vital Signs: Vital signs: Vital Signs Temperature 97.2 F L 08/23/22 06:47 Pulse Rate 84 08/23/22 10:40 Respiratory Rate 18 08/23/22 10:40 Blood Pressure 119/86 08/23/22 10:40 Pulse Oximetry 95 08/23/22 10:40 Oxygen Delivery Me thod 08/23/22 10:40 MDM - Chest Pain Medical Decision Making ED work-up benign. Recommend follow-up with PCP. Will have case management set her up with follow-up with cardiology. Lab Data 08/23/22 07:28 08/23/22 07:28 Radiology Impressions Chest X-Ray 08/23/22 07:12 IMPRESSION: No acute chest abnormality. Chest CTA 08/23/22 08:31 IMPRESSION: 1. No evidence of pulmonary embolus. Some images degraded by breathing artifact. 2. Bibasilar atelectasis. No acute pulmonary infiltrates. 3. No acute chest findings. Laboratory Results WBC 8.7 10^3/uL (4.0-10.0) 08/23/22 07:28 RBC 4.84 10^6/uL (4.1-5.3) 08/23/22 07:28 Hgb 15.4 g/dL (11.5-15.3) H 08/23/22 07:28 Hct 45.7 % (37.0-47.0) 08/23/22 07:28 MCV 94.4 fl (81-99) 08/23/22 07:28 MCH 31.8 pg (28.0-34.0) 08/23/22 07:28 MCHC 33.7 g/dL (30.0-36.0) 08/23/22 07:28 RDW 11.6 % (12.1-15.1) L 08/23/22 07:28 Plt Count 278 10^3/cmm (130-400) 08/23/22 07:28 MPV 11.2 fL (7.4-10.4) H 08/23/22 07:28 Neut % (Auto) 72.9 % 08/23/22 07:28 Lymph % (Auto) 20.4 % 08/23/22 07:28 [place] % (Auto) 6.0 % 08/23/22 07:28 Eos % (Auto) 0.2 % 08/23/22 07:28 Baso % (Auto) 0.3 % 08/23/22 07:28 Neut # (Auto) 6.36 10^3/uL (1.8-7.7) 08/23/22 07: Lymph # (Auto) 1.8 10^3/uL (0.8-4.8) 08/23/22 07:28 [place] # (Auto) 0.5 10^3/uL (0.2-0.9) 08/23/22 07: Eos # (Auto) 0.0 10^3/uL (0.0-0.8) 08/23/22 07: Baso # (Auto) 0.0 10^3/uL (0.0-0.1) 08/23/22 07: Nucleated RBC % (auto) 0 % 08/23/22 07: Nucleated RBCs # 0.0 /100WBC 08/23/22 07:28 D-Dimer 0.84 ug/mIFEU (0-0.59) H 08/23/22 07:28 Specimen Type Arterial 08/23/22 08:16 Sample Site Radial, right 08/23/22 08:16 ABG pH 7.44 (7.35-7.45) 08/23/22 08:16 ABG pCO2 42.3 mmHg (35-45) 08/23/22 08:16 ABG pO2 95.2 mmHg (80.0-100.0) 08/23/22 08:16 ABG HCO3 28.8 mmol/L (22-26) H 08/23/22 08:16 ABG O2 Saturation 97.1 08/23/22 08:16 ABG Base Excess 4.2 mmol/L (-2.0-2.0) H 08/23/22 08:16 Froylan Test Pos 08/23/22 08:16 A-a O2 Gradient 0.3 mmHg (5-10) L 08/23/22 08:16 Hematocrit 41.8 % (37-47) 08/23/22 08:16 Hgb O2 Saturation 95.8 % (95-100) 08/23/22 08:16 Carboxyhemoglobin 0.5 %THgb (0.4-20.1) 08/23/22 08:16 Methemoglobin 0.8 % (0.4-1.5) 08/23/22 08:16 Total Hemoglobin 13.7 g/dL (12-16) 08/23/22 08:16 Sodium 143.0 mmol/L (131-143) 08/23/22 08:16 Potassium 3.5 mmol/L (3.5-5.0) 08/23/22 08:16 Glucose 102.0 mg/dL (70-115) 08/23/22 08:16 Ionized Calcium 1.2 mmol/L (1.1-1.4) 08/23/22 08:16 O2 Delivery Device None 08/23/22 08:16 FiO2 21.0 % 08/23/22 08:16 Clerk Guide ID Walci 08/23/22 08:16 Sodium 133 mmol/L (136-145) L 08/23/22 07:28 Potassium 3.4 mmol/L (3.5-5.1) L 08/23/22 07:28 Chloride 93 mmol/L (98-107) L 08/23/22 07:28 Carbon Dioxide 28 mmol/L (22-29) 08/23/22 07:28 Anion Gap 15.4 (5-19) 08/23/22 07:28 BUN 15 mg/dL (6-20) 08/23/22 07:28 Creatinine 0.7 mg/dL (0.5-0.9) 08/23/22 07:28 GFR Calculation 88.6 mL/min (90-130) L 08/23/22 07:28 Glucose 104 mg/dL (65-115) 08/23/22 07:28 Calculated Osmolality 277 mOsm/kg (285-295) L 08/23/22 07:28 Calcium 10.5 mg/dL (8.5-10.5) 08/23/22 07:28 Total Bilirubin 1.2 mg/dL (0.15-1.2) 08/23/22 07:28 AST 30 U/L (0-32) 08/23/22 07:28 ALT 18 U/L (0-33) 08/23/22 07:28 Alkaline Phosphatase 87 U/L (35-105) 08/23/22 07:28 Troponin T Baseline 6 ng/L (0-10) 08/23/22 07:28 Troponin T 120 Minute 6.00 ng/L (0-10) 08/23/22 09:30 Delta Troponin T 0 ABS# (0-10) 08/23/22 09:30 Total Protein 8.5 g/dL (6.6-8.7) 08/23/22 07:28 Albumin 5.3 g/dL (3.5-5.2) H 08/23/22 07:28 Globulin 3.2 g/dL (1.3-4.6) 08/23/22 07:28 Discharge Plan Discharge Patient Disposition: Home Clinical Impression: Atypical chest pain Condition: Stable Prescriptions: No Action lisinopril-hydrochlorothiazide 20-12.5 mg tablet 1 tab PO DAILY PRN (Reason: Blood Pressure) Rx Instructions: may take a second tab if sbp is greater than 140 acetaminophen [Tylenol Extra Strength] 500 mg Tablet 1,500 mg PO PRN lorazepam 1 mg tablet 1 mg PO Q8H PRN (Reason: Anxiety) aspirin 81 mg Tablet,Chewable 81 mg PO DAILY Discharge Orders: Discharge ED (Routine); Ordered 08/23/22 Ordered By: Onelia Hooper Referrals: Shira Contreras [Primary Care Provider] - Activity Restrictions/Additional Instructions: As we discussed case management should contact you shortly to set you up with your follow-up appointment with cardiology for further evaluation. You may return to the emergency department for worsening or severe chest pain, sync opal/passing out episodes, significant shortness of breath or difficulty breathing, facial drooping, slurred speech, trouble ambulating, numbness, tingling, weakness to your extremities, or any other concerns you may have. Coding Level of Care Code ED Production Supervisor for Chg Fwd Documented by User: Po Rahman DO 08/23/22 15:49 HPI - Chest Pain General: Chief Complaint: Chest Pain Stated Complaint: chest pain/SOB Time Seen by Provider: 08/23/22 07:02 [facility] ED PFSH: Medical History Anxiety Family History Grandmother Anesthesia complication Cancer Family/Other Bleeding disorder Clotting disorder Mother Chronic kidney disease (CKD) Daughter Chronic kidney disease (CKD) Grandfather Lung disease Brother Suicide Denies family history of Diabetes CAD (coronary artery disease) Dementia Stroke Social History Smoking and tobacco status: never smoked Alcohol intake: current Alcohol intake frequency: holidays/special occasions only Physical Exam Neuro: MONO COMA SCALE: document GCS findings [place] coma scale total score: 15 Course Vital Signs: Vital signs: Vital Signs Temperature 97.2 F L 08/23/22 06:47 Pulse Rate 84 08/23/22 10:40 Respiratory Rate 18 08/23/22 10:40 Blood Pressure 119/86 08/23/22 10:40 Pulse Oximetry 95 08/23/22 10:40 Oxygen Delivery Me thod 08/23/22 10:40 MDM - Chest Pain Medical Decision Making ED work-up benign. Recommend follow-up with PCP. Will have case management set her up with follow-up with cardiology. Chart reviewed and patient discussed with midlevel. Agree with assessment and plan. Lab Data 08/23/22 07:28 08/23/22 07:28 Radiology Impressions Chest X-Ray 08/23/22 07:12 IMPRESSION: No acute chest abnormality. Chest CTA 08/23/22 08:31 IMPRESSION: 1. No evidence of pulmonary embolus. Some images degraded by breathing artifact. 2. Bibasilar atelectasis. No acute pulmonary infiltrates. 3. No acute chest findings. Laboratory Results WBC 8.7 10^3/uL (4.0-10.0) 08/23/22 07:28 RBC 4.84 10^6/uL (4.1-5.3) 08/23/22 07:28 Hgb 15.4 g/dL (11.5-15.3) H 08/23/22 07:28 Hct 45.7 % (37.0-47.0) 08/23/22 07: MCV 94.4 fl (81-99) 08/23/22 07: MCH 31.8 pg (28.0-34.0) 08/23/22 07: MCHC 33.7 g/dL (30.0-36.0) 08/23/22 07: RDW 11.6 % (12.1-15.1) L 08/23/22: Plt Count 278 10^3/cmm (130-400) 08/23/22 07: MPV 11.2 fL (7.4-10.4) H 08/23/22 07: Neut % (Auto) 72.9 % 08/23/22 07: Lymph % (Auto) 20.4 % 08/23/22: [place] % (Auto) 6.0 % 08/23/22 07: Eos % (Auto) 0.2 % 08/23/22 07: Baso % (Auto) 0.3 % 08/23/22: Neut # (Auto) 6.36 10^3/uL (1.8-7.7) 08/23/22 07: Lymph # (Auto) 1.8 10^3/uL (0.8-4.8) 08/23/22 07: [place] # (Auto) 0.5 10^3/uL (0.2-0.9) 08/23/22 07: Eos # (Auto) 0.0 10^3/uL (0.0-0.8) 08/23/22 07: Baso # (Auto) 0.0 10^3/uL (0.0-0.1) 08/23/22 07: Nucleated RBC % (auto) 0 % 08/23/22 07: Nucleated RBCs # 0.0 /100WBC 08/23/22 07: D-Dimer 0.84 ug/mIFEU (0-0.59) H 08/23/22 07:28 Specimen Type Arterial 08/23/22 08:16 Sample Site Radial, right 08/23/22 08:16 ABG pH 7.44 (7.35-7.45) 08/23/22 08:16 ABG pCO2 42.3 mmHg (35-45) 08/23/22 08:16 ABG pO2 95.2 mmHg (80.0-100.0) 08/23/22 08:16 ABG HCO3 28.8 mmol/L (22-26) H 08/23/22 08:16 ABG O2 Saturation 97.1 08/23/22 08:16 ABG Base Excess 4.2 mmol/L (-2.0-2.0) H 08/23/22 08:16 Froylan Test Pos 08/23/22 08:16 A-a O2 Gradient 0.3 mmHg (5-10) L 08/23/22 08:16 Hematocrit 41.8 % (37-47) 08/23/22 08:16 Hgb O2 Saturation 95.8 % (95-100) 08/23/22 08:16 Carboxyhemoglobin 0.5 %THgb (0.4-20.1) 08/23/22 08:16 Methemoglobin 0.8 % (0.4-1.5) 08/23/22 08:16 Total Hemoglobin 13.7 g/dL (12-16) 08/23/22 08:16 Sodium 143.0 mmol/L (131-143) 08/23/22 08:16 Potassium 3.5 mmol/L (3.5-5.0) 08/23/22 08:16 Glucose 102.0 mg/dL (70-115) 08/23/22 08:16 Ionized Calcium 1.2 mmol/L (1.1-1.4) 08/23/22 08:16 O2 Delivery Device None 08/23/22 08:16 FiO2 21.0 % 08/23/22 08:16 Clerk Guide ID Walci 08/23/22 08:16 Sodium 133 mmol/L (136-145) L 08/23/22 07:28 Potassium 3.4 mmol/L (3.5-5.1) L 08/23/22 07:28 Chloride 93 mmol/L (98-107) L 08/23/22 07:28 Carbon Dioxide 28 mmol/L (22-29) 08/23/22 07:28 Anion Gap 15.4 (5-19) 08/23/22 07:28 BUN 15 mg/dL (6-20) 08/23/22 07:28 Creatinine 0.7 mg/dL (0.5-0.9) 08/23/22 07:28 GFR Calculation 88.6 mL/min (90-130) L 08/23/22 07:28 Glucose 104 mg/dL (65-115) 08/23/22 07:28 Calculated Osmolality 277 mOsm/kg (285-295) L 08/23/22 07:28 Calcium 10.5 mg/dL (8.5-10.5) 08/23/22 07:28 Total Bilirubin 1.2 mg/dL (0.15-1.2) 08/23/22 07:28 AST 30 U/L (0-32) 08/23/22 07:28 ALT 18 U/L (0-33) 08/23/22 07:28 Alkaline Phosphatase 87 U/L (35-105) 08/23/22 07:28 Troponin T Baseline 6 ng/L (0-10) 08/23/22 07:28 Troponin T 120 Minute 6.00 ng/L (0-10) 08/23/22 09:30 Delta Troponin T 0 ABS# (0-10) 08/23/22 09:30 Total Protein 8.5 g/dL (6.6-8.7) 08/23/22 07:28 Albumin 5.3 g/dL (3.5-5.2) H 08/23/22 07:28 Globulin 3.2 g/dL (1.3-4.6) 08/23/22 07:28 Discharge Plan Discharge Patient Disposition: Home Clinical Impression: Atypical chest pain Condition: Stable Prescriptions: No Action lisinopril-hydrochlorothiazide 20-12.5 mg tablet 1 tab PO DAILY PRN (Reason: Blood Pressure) Rx Instructions: may take a second tab if sbp is greater than 140 acetaminophen [Tylenol Extra Strength] 500 mg Tablet 1,500 mg PO PRN lorazepam 1 mg tablet 1 mg PO Q8H PRN (Reason: Anxiety) aspirin 81 mg Tablet,Chewable 81 mg PO DAILY Discharge Orders: Discharge ED (Routine); Ordered 08/23/22 Ordered By: Onelia Hooper Referrals: Shira Contreras [Primary Care Provider] - Activity Restrictions/Additional Instructions: As we discussed case management should contact you shortly to set you up with your follow-up appointment with cardiology for further evaluation. You may return to the emergency department for worsening or severe chest pain, syncop al/passing out episodes, significant shortness of breath or difficulty breathing, facial drooping, slurred speech, trouble ambulating, numbness, tingling, weakness to your extremities, or any other concerns you may have. Coding Level of Care Code ED Production Supervisor for Lisseth Chaudhari
[2022-08-23 07:43] LABS: Basophils % 0.3 %; Eosinophils % 0.2 %; Hematocrit 45.7 % (37.0-47.0); Hemoglobin 15.4 g/dL (11.5-15.3); Lymphocytes # 1.8 10^3/uL (0.8-4.8); Lymphocytes % 20.4 %; Mean Corpuscular HGB Conc 33.7 g/dL (30.0-36.0); Mean Corpuscular Hemoglobin 31.8 pg (28.0-34.0); Mean Corpuscular Volume 94.4 fl (81-99); Mean Platelet Volume 11.2 fL (7.4-10.4); Monocytes # 0.5 10^3/uL (0.2-0.9); Neutrophils # 6.36 10^3/uL (1.8-7.7); Neutrophils % 72.9 %; Nucleated Red Blood Cells % 0 %; Platelet Count 278 10^3/cmm (130-400); Red Blood Count 4.84 10^6/uL (4.1-5.3); Red Cell Distribution Width 11.6 % (12.1-15.1); White Blood Count 8.7 10^3/uL (4.0-10.0)
--- NOTE | 2022-08-23 07:51 | ECG_ITS ---
[facility] Test Date: 2022-08-23 Pat Name: Jeri Hutchinson Department: Room: Gender: Female Stumper Feller: : 1970 Requested By: Onelia Hooper Order Number: [id number] Seema MD: Arlin Maldonado M.D. Measurements Intervals Point Rate: 71 P: 52 [place]: 128 QRS: 77 QRSD: 90 T: 58 QT: 376 QTc: 411 Interpretive Statements SINUS RHYTHM WITH OCCASIONAL SUPRAVENTRICULAR PREMATURE COMPLEXES NONSPECIFIC T-WAVE ABNORMALITY Compared to ECG 08/23/2022 06:54:39 No significant changes Electronically Signed On 08-23-2022 8:34:49 GUIDANCE ADVISER by Arlin Maldonado M.D. [id number]
[2022-08-23 07:52] LABS: D Dimer 0.84 ug/mIFEU (0-0.59)
--- NOTE | 2022-08-23 07:56 | PC.NURSE ---
PTS LOC DECLINING AT THIS TIME. I ALERTED DR. MURPHY ORDERED REPEAT THE EKG. NO FURTHER ORDERS AT THIS TIME.
[2022-08-23 07:57] LABS: Alanine Aminotransferase 18 U/L (0-33); Albumin Level 5.3 g/dL (3.5-5.2); Alkaline Phosphatase 87 U/L (35-105); Anion Gap 15.4 (5-19); Aspartate Amino Transferase 30 U/L (0-32); Blood Urea Nitrogen 15 mg/dL (6-20); Calcium 10.5 mg/dL (8.5-10.5); Carbon Dioxide 28 mmol/L (22-29); Chloride 93 mmol/L (98-107); Globulin 3.2 g/dL (1.3-4.6); Glomerular Filtration Rate 88.6 mL/min (90-130); Glucose 104 mg/dL (65-115); Osmolality Calculated 277 mOsm/kg (285-295); Potassium 3.4 mmol/L (3.5-5.1); Sodium 133 mmol/L (136-145); Total Bilirubin 1.2 mg/dL (0.15-1.2); Total Protein 8.5 g/dL (6.6-8.7); Troponin(5th) Baseline 6 ng/L (0-10)
[2022-08-23] MEDS: sodium chloride 0.9% 1,000 ML 999 ML IV (08:05)
[2022-08-23 08:27] LABS: ABG PCO2 42.3 mmHg (35-45); ABG PH Result 7.44 (7.35-7.45); Alveolar-Arterial Oxygen Gradi 0.3 mmHg (5-10); Arterial Blood Gas Hematocrit 41.8 % (37-47); Base Excess ABG 4.2 mmol/L (-2.0-2.0); Blood Gas Allen Test Pos; Blood Gas Operator Identificat WALCI; Blood Gas Sample Site Radial, right; Blood Gas Sample Type Arterial; Carboxyhemoglobin 0.5 %THgb (0.4-20.1); HCO3 ABG 28.8 mmol/L (22-26); HGB O2 Sat 95.8 % (95-100); Ionized Calcium Level - ABG 1.2 mmol/L (1.1-1.4); Methemoglobin 0.8 % (0.4-1.5); Oxygen Saturation ABG 97.1; PO2 ABG 95.2 mmHg (80.0-100.0); Potassium Level - ABG 3.5 mmol/L (3.5-5.0); Total Hemoglobin 13.7 g/dL (12-16)
--- NOTE | 2022-08-23 08:31 | CT_ITS ---
WS: [id number] CTA OF THE CHEST WITH PULMONARY EMBOLISM PROTOCOL TECHNIQUE: High-resolution contrast enhanced CTA of the chest with coronal and sagittal reformatted i sajis with pulmonary embolism protocol. MIP images are also reviewed. CLINICAL INFORMATION: SOB, elevated d dimer COMPARISON: None. DLP: 276.[address] scans at [facility] use at least one of these dose optimization techniques: automated e xposure control; mA and/or kV adjustment per patient size (includes targeted exams where dose is matc hed to clinical indication); or iterative reconstruction. FINDINGS: Proximal main pulmonary arteries are normal. Normal segmental pulmonary arteries. Distal most lower l obe pulmonary arteries not well evaluated due to breathing artifact. No evidence of pulmonary embolus . Normal caliber thoracic aorta. No mediastinal or hilar lymphadenopathy. Hepatomegaly. Partially visualized hepatic cysts. Adrenal glands are normal. Celiac and SMA are paten t in the upper abdomen. Small esophageal hiatal hernia. No axillary lymphadenopathy. Both lungs are well aerated. No acute pulmonary infiltrates. Slight bibasilar atelectasis. Calcified granuloma RIGHT lung apex CT/CT angio chest PE protcl [id number] IMPRESSION: 1. No evidence of pulmonary embolus. Some images degraded by breathing artifac t. 2. Bibasilar atelectasis. No acute pulmonary infiltrates. 3. No acute chest findings.
[2022-08-23] MEDS: LORazepam 2 mg/mL INJ 1 mL 1 MG IVP (08:38)
[2022-08-23] MEDS: iohexol 350 mg/mL 500 mL Btl (per mL) IV (08:53)
[2022-08-23] MEDS: acetaminophen 500 mg Tablet 1000 MG PO (09:36)
[2022-08-23] MEDS: lidocaine 2% viscous 15 ML, aluminum-mag hydrox-simethicon 30 ML, sucralfate oral liq 1 GM PO (09:36)
[2022-08-23 10:41] LABS: Troponin 5 2HR Delta 0 ABS# (0-10)
--- NOTE | 2022-08-23 12:35 | DCPLANNER ---
Addendum entered by Lois Graff 08/27/22 13:30: senior procurement manager received the following message from the front office staff at [facility] regarding follow up appointment: Spoke with patient She is going to have her PCP read monitor results and if she needs to be seen she will have PCP send referral. Thank you. On 08/23/22 @ 15:31 Licha Yu Wrote To [facility] Front Office Spoke with patient. Patient stated she would call back that she is at [facility] getting a heart monitor placed. Patient stated she would let us know if and when she wants to be seen. Original Note: senior procurement manager had message to schedule a follow up appointment for patient with cardiology. senior procurement manager sent patients information to the front office staff at [facility]. Patients information will be printed and reviewed. Clinic will call patient with appointment information.
== END 2022-08-23 10:49 | disposition home or self-care (01) ==
PROVIDERS: Emergency Provider Physician Assistant; PCP Registered Nurse
DX: R07.89 Other chest pain (principal); Z79.82 Long term (current) use of aspirin
CPT/HCPCS: 36600; 71045; 71275; 80051; 80053; 82330; 82805; 84484; 85025; 85378; 93005; 96361; 96374; 99285; J2060; J7030; Q9967

== ENCOUNTER 2022-12-15 01:03 | Inpatient (IN) | payer MEDICAID, SELFPAY ==
[2022-12-15 01:05] VITALS: BP 177/95; PULSE 67; RESP 16; TEMP 36.7; O2SAT 97; BMI 25.7
--- NOTE | 2022-12-15 01:05 | ED.C_ITS ---
HPI - Psych General: Chief Complaint: Psychiatric Symptoms Stated Complaint: SI Time Seen by Provider: 12/15/22 01:05 History of Present Illness: Ms. Hutchinson is a 52-year-old lady presented to the emergency department for psychiatric evaluation. She presents via law enforcement for suicidal ideation. She endorses profound hopelessness and depression. She feels no support and feels social isolation. She apparently left a suicide note and was driving around when law enforcement found her. She initially denied specific plan however later admitted to having a firearm and thinking about shooting herself. She also endorses thoughts over the past few days of how long it would have taken others to find her body if she killed herself. Overall course of symptoms has worsened. Intensity is severe. She is not on antidepressants or other psychiatric medications currently. No other specific changes in health, exacerbating, or alleviating factors identified. Onset (ago): day(s) Duration: getting worse Context: significant life stressor Associated psychiatric symptoms: depression and suicidal ideation If self harm: admits thoughts of self harm and has plan Review of Systems General: Reports: 10 or more systems reviewed and unremarkable except in HPI and below PFSH ED PFSH: Medical History Anxiety Family History Grandmother Anesthesia complication Cancer Family/Other Bleeding disorder Clotting disorder Mother Chronic kidney disease (CKD) Daughter Chronic kidney disease (CKD) Grandfather Lung disease Brother Suicide Denies family history of Diabetes CAD (coronary artery disease) Dementia Stroke Social History Smoking and tobacco status: never smoked Alcohol intake: current Alcohol intake frequency: holidays/special occasions only Substance/Drug Use: never Physical Exam Const: COMMON NORMALS: alert GENERAL APPEARANCE: cooperative and well developed HENMT: COMMON NORMALS: normocephalic and atraumatic HEAD & SCALP: normocephalic and atraumatic Eye: COMMON NORMALS: conjunctivae normal CONJUNCTIVA: Yes conjunctivae normal SCLERA: sclerae normal Neck/C-Spine: COMMON NORMALS: supple GENERAL: Yes trachea midline Resp: COMMON NORMALS: normal respiratory effort EFFORT & INSPECTION: Yes able to speak in complete sentences Cardio: COMMON NORMALS: regular rate and regular rhythm RATE: regular rate RHYTHM: regular rhythm Extremity: GENERAL: Yes normal exam except as noted and No edema Neuro: COMMON NORMALS: moves all extremities SENSORIUM/ORIENTATION: Yes alert and No Orientation impaired Psych: ATTITUDE: Yes Withdrawn affect present MOOD & AFFECT: Yes depressed mood and Yes tearful THOUGHT CONTENT: Yes Suicidality present INSIGHT: Fair insight present (Psych) Course Vital Signs: Vital signs: Vital Signs Temperature 98.5 F 12/17/22 14:00 Pulse Rate 88 12/17/22 14:00 Respiratory Rate 16 12/17/22 14:00 Blood Pressure 131/99 12/17/22 14:00 Pulse Oximetry 98 12/17/22 14:00 Oxygen Delivery Me thod Room Air 12/16/22 14:00 MDM - Psych Medical Decision Making 52-year-old lady with history of depression not currently on medication presenting due to worsening depression with suicidal ideation and plan. She ap pears clinically depressed and tearful on exam. Otherwise nontoxic and denies new medical concerns. EKG demonstrates sinus rhythm, normal axis and intervals, no STEMI. Labs demonstrate no significant hematologic or metabolic abnormality. Mild thrombocytopenia can be further evaluated in the outpatient setting, there is no evidence of bleeding on clinical exam. TSH is normal. Urine drug screen and toxic ingestions are negative. Urinalysis is normal. COVID negative. Chest x-ray with no lobar consolidation or pneumothorax. No indication for additional imaging at this time. Based on ED evaluation at this point there is no obvious condition that would preclude the patient from inpatient management of psychiatric concerns/symptoms. Given severity of symptoms patient requires psychiatric hold and inpatient management for stabilization, assessment, and treatment to ensure reasonable degree of safety. The patient reports negative experience at our facility previously and I believe that it is important to ensure patient has therapeutic effect from inpatient management, therefore we will look for placement at patient's request. If beds are not available the patient may require admission to our facility. Medical Records I reviewed the patient's medical records. Lab Data I reviewed the patient's lab results. 12/15/22 02:19 12/15/22 02:19 Radiology Impressions Chest X-Ray 12/15/22 03:22 IMPRESSION: No acute findings. Laboratory Results WBC 7.5 10^3/uL (4.0-10.0) 12/15/22 02:19 RBC 3.91 10^6/uL (4.1-5.3) L 12/15/22 02:19 Hgb 12.5 g/dL (11.5-15.3) 12/15/22 02:19 Hct 37.9 % (37.0-47.0) 12/15/22 02:19 MCV 96.9 fl (81-99) 12/15/22 02:19 MCH 32.0 pg (28.0-34.0) 12/15/22 02:19 MCHC 33.0 g/dL (30.0-36.0) 12/15/22 02:19 RDW 11.8 % (12.1-15.1) L 12/15/22 02:19 Plt Count 128 10^3/cmm (130-400) L 12/15/22 02:19 MPV 14.2 fL (7.4-10.4) H 12/15/22 02:19 Neut % (Auto) 59.6 % 12/15/22 02:19 Lymph % (Auto) 31.9 % 12/15/22 02:19 [place] % (Auto) 6.7 % 12/15/22 02:19 Eos % (Auto) 1.1 % 12/15/22 02:19 Baso % (Auto) 0.4 % 12/15/22 02:19 Neut # (Auto) 4.46 10^3/uL (1.8-7.7) 12/15/22 02:19 Lymph # (Auto) 2.4 10^3/uL (0.8-4.8) 12/15/22 02:19 [place] # (Auto) 0.5 10^3/uL (0.2-0.9) 12/15/22 02:19 Eos # (Auto) 0.1 10^3/uL (0.0-0.8) 12/15/22 02:19 Baso # (Auto) 0.0 10^3/uL (0.0-0.1) 12/15/22 02:19 Nucleated RBC % (auto) 0 % 12/15/22 02:19 Nucleated RBCs # 0.0 /100WBC 12/15/22 02:19 Sodium 140 mmol/L (136-145) 12/15/22 02:19 Potassium 3.6 mmol/L (3.5-5.1) 12/15/22 02:19 Chloride 104 mmol/L (98-107) 12/15/22 02:19 Carbon Dioxide 25 mmol/L (22-29) 12/15/22 02:19 Anion Gap 14.6 (5-19) 12/15/22 02:19 BUN 16 mg/dL (6-20) 12/15/22 02:19 Creatinine 0.5 mg/dL (0.5-0.9) 12/15/22 02:19 GFR Calculation 130.6 mL/min (90-130) H 12/15/22 02:19 Glucose 95 mg/dL (65-115) 12/15/22 02:19 Calculated Osmolality 291 mOsm/kg (285-295) 12/15/22 02:19 Calcium 9.3 mg/dL (8.5-10.5) 12/15/22 02:19 Total Bilirubin 0.3 mg/dL (0.15-1.2) 12/15/22 02:19 AST 23 U/L (0-32) 12/15/22 02:19 ALT 17 U/L (0-33) 12/15/22 02:19 Alkaline Phosphatase 62 U/L (35-105) 12/15/22 02:19 Total Protein 6.7 g/dL (6.6-8.7) 12/15/22 02:19 Albumin 4.0 g/dL (3.5-5.2) 12/15/22 02:19 Globulin 2.7 g/dL (1.3-4.6) 12/15/22 02:19 TSH 1.80 uIU/mL (0.27-4.20) 12/15/22 02:19 HCG, Qual Negative (Negative) 12/15/22 01:13 Urine Color Yellow (Yellow) 12/15/22 01:13 Urine Appearance Clear (CLEAR) 12/15/22 01:13 Urine pH 7 (5-7) 12/15/22 01:13 Ur Specific [place] 1.010 (1.005-1.030) 12/15/22 01:13 Urine Protein Neg (Negative) 12/15/22 01:13 Urine Glucose (UA) Norm (Normal) 12/15/22 01:13 Urine Ketones Negative (Negative) 12/15/22 01:13 Urine Blood Neg (Negative) 12/15/22 01:13 Urine Nitrate Negative (Negative) 12/15/22 01:13 Urine Bilirubin Neg (Negative) 12/15/22 01:13 Urine Urobilinogen Norm mg/dL (Negative) 12/15/22 01:13 Ur Leukocyte Esterase Negative (Negative) 12/15/22 01:13 Nasal Influ A H1 2009 PCR Not detected (NOT DETECT) 12/15/22 03:38 Salicylates < 0.3 mg/dL (3-10) L 12/15/22 02:19 Urine Opiates Screen Negative ng/mL (Negative) 12/15/22 01:13 Acetaminophen < 5.0 ug/mL (10-30) L 12/15/22 02:19 Ur Barbiturates Screen Negative ng/mL (Negative) 12/15/22 01:13 Ur Phencyclidine Scrn Negative ng/mL (Negative) 12/15/22 01:13 Ur Amphetamines Screen Negative ng/mL (Negative) 12/15/22 01:13 U Benzodiazepines Scrn Negative ng/mL (Negative) 12/15/22 01:13 Urine Cocaine Screen Negative ng/mL (Negative) 12/15/22 01:13 U Marijuana (THC) Screen Negative ng/mL (Negative) 12/15/22 01:13 Ethyl Alcohol < 10 mg/dL (0-10) 12/15/22 02:19 Adenovirus (PCR) Not detected (NOT DETECT) 12/15/22 03:38 C. pneumoniae DNA (PCR) Not detected (NOT DETECT) 12/15/22 03:38 Coronavirus 229E (PCR) Not detected (NOT DETECT) 12/15/22 03:38 Human Metapneumovir PCR Not detected (NOT DETECT) 12/15/22 03:38 Influenza A (H1) PCR Not detected (NOT DETECT) 12/15/22 03:38 Influenza A (H3) PCR Not detected (NOT DETECT) 12/15/22 03:38 Influenza Type A (PCR) Not detected (NOT DETECT) 12/15/22 03:38 Influenza Type B (PCR) Not detected (NOT DETECT) 12/15/22 03:38 M. pneumoniae (PCR) Not detected (NOT DETECT) 12/15/22 03:38 Parainfluenza 1 (PCR) Not detected (NOT DETECT) 12/15/22 03:38 Parainfluenza 2 (PCR) Not detected (NOT DETECT) 12/15/22 03:38 Parainfluenza 3 (PCR) Not detected (NOT DETECT) 12/15/22 03:38 Parainfluenza 4 (PCR) Not detected (NOT DETECT) 12/15/22 03:38 RSV Type A (PCR) Not detected (NOT DETECT) 12/15/22 03:38 RSV Type B (PCR) Not detected (NOT DETECT) 12/15/22 03:38 Entero/Rhino (PCR) Not detected (NOT DETECT) 12/15/22 03:38 SARS-CoV-2 (PCR) Not detected (NOT DETECT) 12/15/22 03:38 SARS-CoV-2 Ag (Rapid) negative (Negative) 12/15/22 01:31 Discharge Plan Discharge Patient Disposition: Admitted As Inpatient Admit Provider: Keaton Chapman Clinical Impression: Suicidal ideation Condition: Stable Discharge Diet: Regular Discharge Activity: Resume usual activity Coding Level of Care Code ED Safety Lead for Lisseth Chaudhari
--- NOTE | 2022-12-15 01:30 | ECG_ITS ---
[facility] Test Date: 2022-12-15 Pat Name: Jeri Hutchinson Department: Room: Gender: Female Temperature Control Inspector: : 1970 Requested By: Jonathan Chand Order Number: [id number] Seema MD: Arlin Maldonado M.D. Measurements Intervals [place] Rate: 63 P: 10 CO: 132 QRS: 37 QRSD: 104 T: 29 QT: 385 QTc: 396 Interpretive Statements SINUS RHYTHM Compared to ECG 08/23/2022 07:51:40 T-wave abnormality no longer present Electronically Signed On 12-15-2022 8:12:34 CDT by Arlin Maldonado M.D. [email or web address]
[2022-12-15 01:44] LABS: Add Urine Microscopic? NO; Charge for UA Resulting for Rev
[2022-12-15 01:47] LABS: Bilirubin Urine Neg (Negative); Blood Urine Neg (Negative); Glucose Urine UA Norm (Normal); Ketones Urine Negative (Negative); Leukocyte Esterase Urine Negative (Negative); Nitrate Urine Negative (Negative); Protein Urine Neg (Negative); Urine Appearance Clear (CLEAR); Urine Color Yellow (Yellow); Urobilinogen Urine Norm (Negative); pH Urine 7 (5-7)
[2022-12-15 01:48] LABS: HCG Qualitative Urine. Negative (Negative)
[2022-12-15 01:53] LABS: SARS Covid-2 Antigen negative (Negative)
[2022-12-15 01:56] LABS: Amphetamines Screen Urine Negative (Negative); Barbiturates Screen Urine Negative (Negative); Benzodiazepines Screen Urine Negative (Negative); Cocaine Screen Urine Negative (Negative); Opiate Screen Urine Negative (Negative); PCP Screen Urine Negative (Negative); THC Screen Urine Negative (Negative)
[2022-12-15 02:24] LABS: Basophils % 0.4 %; Eosinophils # 0.1 10^3/uL (0.0-0.8); Eosinophils % 1.1 %; Hematocrit 37.9 % (37.0-47.0); Hemoglobin 12.5 g/dL (11.5-15.3); Lymphocytes # 2.4 10^3/uL (0.8-4.8); Lymphocytes % 31.9 %; Mean Corpuscular Volume 96.9 fl (81-99); Mean Platelet Volume 14.2 fL (7.4-10.4); Monocytes # 0.5 10^3/uL (0.2-0.9); Monocytes % 6.7 %; Neutrophils # 4.46 10^3/uL (1.8-7.7); Neutrophils % 59.6 %; Nucleated Red Blood Cells % 0 %; Platelet Count 128 10^3/cmm (130-400); Red Blood Count 3.91 10^6/uL (4.1-5.3); Red Cell Distribution Width 11.8 % (12.1-15.1); White Blood Count 7.5 10^3/uL (4.0-10.0)
[2022-12-15 02:47] LABS: Slide Review Slide Review Perform
[2022-12-15 02:54] LABS: Acetaminophen < 5.0 ug/mL (10-30); Alanine Aminotransferase 17 U/L (0-33); Alkaline Phosphatase 62 U/L (35-105); Anion Gap 14.6 (5-19); Aspartate Amino Transferase 23 U/L (0-32); Blood Urea Nitrogen 16 mg/dL (6-20); Calcium 9.3 mg/dL (8.5-10.5); Carbon Dioxide 25 mmol/L (22-29); Chloride 104 mmol/L (98-107); Creatinine Clr Calc Pharmacy 122.7154; Globulin 2.7 g/dL (1.3-4.6); Glomerular Filtration Rate 130.6 mL/min (90-130); Glucose 95 mg/dL (65-115); Osmolality Calculated 291 mOsm/kg (285-295); Potassium 3.6 mmol/L (3.5-5.1); Salicylate < 0.3 mg/dL (3-10); Sodium 140 mmol/L (136-145); Total Bilirubin 0.3 mg/dL (0.15-1.2); Total Protein 6.7 g/dL (6.6-8.7)
[2022-12-15 02:55] LABS: Alcohol Level < 10 mg/dL (0-10)
--- NOTE | 2022-12-15 03:22 | XRR_ITS ---
PROCEDURE INFORMATION: Exam: XR Chest Exam date and time: 12/15/2022 3:31 AM Age: 52 years old Clinical indication: Screening exam; Other screening; Patient HX: Behavioral health; Additional info: Medical screening TECHNIQUE: Imaging protocol: Radiologic exam of the chest. Views: 1 view. COMPARISON: CR XR chest 1V portable [id number] 08/23/2022 7:36 AM FINDINGS: Lungs: No consolidation. Pleural spaces: Unremarkable. No pleural effusion. No pneumothorax. Heart/Mediastinum: No cardiomegaly. Bones/joints: No acute fracture. XR/XR chest 1V portable [id number] IMPRESSION: No acute findings.
[2022-12-15] MEDS: LORazepam 0.5 mg Tablet PO (03:33)
--- NOTE | 2022-12-15 04:54 | PC.NURSE ---
Pt served with copy of 96 hour right sheet by this nurse and security. All questions answered.
[2022-12-15 05:38] VITALS: BP 164/90; PULSE 71; RESP 16; O2SAT 96
[2022-12-15 07:55] VITALS: BP 159/102; PULSE 66; RESP 16; TEMP 36.9; O2SAT 97
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
[2022-12-15 09:50] LABS: Adenovirus Not Detected (NOT DETECT); Chlamydia Pneumoniae Not Detected (NOT DETECT); Coronavirus 229E,HKU1,NL63,OC4 Not Detected (NOT DETECT); Human Metapneumovirus Not Detected (NOT DETECT); Human Rhinovirus/Enterovirus Not Detected (NOT DETECT); Influenza A Not Detected (NOT DETECT); Influenza A H1 Not Detected (NOT DETECT); Influenza A H1-2009 Not Detected (NOT DETECT); Influenza A H3 Not Detected (NOT DETECT); Influenza B Not Detected (NOT DETECT); Mycoplasma Pneumoniae Not Detected (NOT DETECT); Parainfluenza Virus Type 1 Not Detected (NOT DETECT); Parainfluenza Virus Type 2 Not Detected (NOT DETECT); Parainfluenza Virus Type 3 Not Detected (NOT DETECT); Parainfluenza Virus Type 4 Not Detected (NOT DETECT); Respiratory Syncytial Virus A Not Detected (NOT DETECT); Respiratory Syncytial Virus B Not Detected (NOT DETECT); SARS-COV-2 Not Detected (NOT DETECT)
[2022-12-15] MEDS: acetaminophen 325 mg Tablet 650 MG PO (11:53)
[2022-12-15 14:00] VITALS: BP 134/86; PULSE 79; RESP 16; TEMP 36.7; O2SAT 96
[2022-12-15] MEDS: ibuprofen 600 mg Tablet PO (14:57)
[2022-12-15] MEDS: hyDROXYzine 25 mg Capsule 50 MG PO (14:57)
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
[2022-12-15 21:32] VITALS: BP 123/82; PULSE 90; RESP 117; TEMP 36.6; O2SAT 96
[2022-12-16 06:00] VITALS: BP 132/85; PULSE 75; RESP 16; TEMP 37; O2SAT 97
[2022-12-16] MEDS: acetaminophen 325 mg Tablet 650 MG PO ×2 (11:59→17:20)
[2022-12-16 14:00] VITALS: BP 137/83; PULSE 73; RESP 16; TEMP 36.8; O2SAT 98
--- NOTE | 2022-12-16 15:04 | P.NPUPN_ITS ---
Subjective NPU Subjective: Presented today reporting that she continues to struggle about being here. We talked about her suicide note and how that came about. We talked about the need for us to have a sense about where she really is given that she has not had treatment recently. We discussed her working with the treatment team to get follow-up appointments and us wanting to make sure those things are in place bef ore we would consider discharge. We discussed the likelihood of discharge in the next 48 hours. Mental Status Exam MSE Comments: This is an overweight vs obese, white female, in hospital scrubs, with adequate grooming and eye contact. No abnormal movements, except for psychomotor retardation. Cooperative with exam in mild distress. Speech was normal rate and volume. Mood described as really tired and frustrated; affect congruent. Thought process, organized. Thought content: patient denied any suicidal or homicidal ideation, there were no delusions reported or noted, patient denied any auditory or visual hallucinations. Attention, concentration, and memory appeared intact, but none were formally tested. Alert and oriented times three. Insight and judgment appeared fair. Impulse control is limited. Vitals/I&O/Wt Last Vital Signs Temp 98.3 F 12/16/22 14:00 Pulse 73 12/16/22 14:00 Resp 16 12/16/22 14:00 BP 137/83 12/16/22 14:00 Pulse Ox 98 12/16/22 14:00 O2 Del Method Room Air 12/16/22 14:00 Data NPU 12/15/22 02:19 12/15/22 02:19 A&P Assessment and plan (1) Suicidal ideation: (2) Major depressive disorder, recurrent: (3) Anxiety: Plan This is a 52-year-old, white female, with a history of depression and anxiety with limited treatment, who presents secondary to suicidal thoughts and making comments to a friend related to those feelings, who presents now expressing a desire to leave and with no interest in starting medication, at this time. 1. Continue without medication. 2. Encourage individual, group, and milieu therapy. 3. Continue q-15-minute checks for safety. 4. Ensure we have some collateral information on safety issues including weapons prior to discharge given 96-hour hold. Involuntary Hold Information 96 Hour Hold: 96 Hour Involuntary Admission: Yes 96 Hour Hold Ending Date: 12/21/22 96 Hour Hold Ending Time: 02:56 Attestations NPU Medical Necessity Statement*: Inpatient hospitalization is medically necessary and the clinically appropriate intervention, at this time. We will monitor and make changes as indicated. Likely length of stay is 1-3 days. Coding Level of Care Code Acute Code for Chg Fwd Diagnoses Suicidal ideation R45.851 Major depressive disorder, recurrent F33.9 Anxiety F41.9
[2022-12-16] MEDS: OLANZapine 5 mg ODT PO (16:12)
[2022-12-16 22:00] VITALS: RESP 16
[2022-12-17] MEDS: acetaminophen 325 mg Tablet 650 MG PO ×2 (04:22→09:56)
[2022-12-17 06:00] VITALS: RESP 14
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
[2022-12-17 13:29] VITALS: BP 131/81; PULSE 89; RESP 18; TEMP 36.9; O2SAT 95
[2022-12-17 13:56] VITALS: BP 131/81; PULSE 89; RESP 18; TEMP 36.9; O2SAT 95
[2022-12-17 14:00] VITALS: BP 131/99; PULSE 88; RESP 16; TEMP 36.9; O2SAT 98
== END 2022-12-17 14:13 | disposition home or self-care (01) | DRG 885 ==
LOC: ER 06:16 → NP 06:26
PROVIDERS: Admitting Provider Psychiatry & Neurology Psychiatry; Emergency Provider Emergency Medicine; PCP Registered Nurse; Visit Provider Psychiatry & Neurology Psychiatry
DX: F33.9 Major depressive disorder, recurrent, unspecified (principal); R45.851 Suicidal ideations; F41.9 Anxiety disorder, unspecified; Z81.8 Family history of other mental and behavioral disorders
CPT/HCPCS: 71045; 80053; 80306; 80307; 81003; 81025; 84443; 85025; 87426; 87486; 87581; 87633; 93005; 97150; 97165; 99238; 99285